=== PATIENT | female | born 1950 | race Caucasian/White ===

== ENCOUNTER 2021-09-11 13:27 | Emergency (ER) | payer MEDICARE ==
[2021-09-11 16:08] LABS: HEMOGLOBIN 9.9 gm/dl (12.3-15.3); RED BLOOD COUNT 4.24 M/UL (4.00-5.10); WHITE BLOOD COUNT 6.5 K/UL (4.5-11.0)
[2021-09-11 16:33] LABS: BUN/CREATININE RATIO 13 (0-10)
[2021-09-11] MEDS ORDERED: ATIVAN0.5 MG PO (20:32)
== END 2021-09-11 20:52 | disposition home or self-care (01) ==
LOC: ER1 13:27
PROVIDERS: Family Medicine
DX: S09.90XA Unspecified injury of head, initial encounter (principal); S16.1XXA Strain of muscle, fascia and tendon at neck level, initial encounter; S39.012A Strain of muscle, fascia and tendon of lower back, initial encounter; I71.4 Abdominal aortic aneurysm, without rupture; M17.11 Unilateral primary osteoarthritis, right knee; M47.9 Spondylosis, unspecified; F13.20 Sedative, hypnotic or anxiolytic dependence, uncomplicated; R91.1 Solitary pulmonary nodule; F17.200 Nicotine dependence, unspecified, uncomplicated; W01.10XA Fall on same level from slipping, tripping and stumbling with subsequent striking against unspecified object, initial encounter; Y92.009 Unspecified place in unspecified non-institutional (private) residence as the place of occurrence of the external cause
CPT/HCPCS: 70450; 72125; 72128; 72131; 73564; 80048; 85025; 96374; 96375; 99284; J1200; J2930; Q9967

== ENCOUNTER 2021-09-15 12:51 | Emergency (ER) | payer MEDICARE ==
[~2021-09-15 12:51] MED LIST: ATIVAN0.5 MG PO
[2021-09-17] MEDS ORDERED: LOPRESSOR 25 MG25 MG PO (17:25)
[2021-09-17] MEDS ORDERED: OMEPRAZOLE40 MG PO (17:25)
[2021-09-17] MEDS ORDERED: CLOPIDOGREL75 MG PO (17:25)
[2021-09-17] MEDS ORDERED: LEVOTHYROXINE137 MC1 PO (17:25)
[2021-09-17] MEDS ORDERED: TRAZODONE HCL100 MG PO (17:25)
[2021-09-17] MEDS ORDERED: ATIVAN0.5 MG PO (17:26)
== END 2021-09-15 15:25 | disposition home or self-care (01) ==
LOC: ER1 12:51
DX: Z76.0 Encounter for issue of repeat prescription (principal); I10 Essential (primary) hypertension; E07.9 Disorder of thyroid, unspecified; F17.200 Nicotine dependence, unspecified, uncomplicated; Z91.041 Radiographic dye allergy status; Z79.899 Other long term (current) drug therapy
CPT/HCPCS: 93005; 99285